=== PATIENT | female | born 1960 | race Caucasian/White ===

== ENCOUNTER 2016-10-31 08:44 | Inpatient (IN) ==
--- NOTE | 2016-10-31 09:43 | PROVIDER DOCUMENTATION ---
HPI-Abdominal Pain/GI Problem - General Chief Complaint: Abdominal Pain Stated Complaint: UPPER ABDOMINAL PAIN/LEG PAIN Time Seen by Provider: 10/31/16 09:24 Source: patient Allergies/Adverse Reactions: Patient Allergies Allergy/AdvReac Type Severity Reaction Status Date / Time chocolate flavor Allergy VOMITING Verified 10/31/16 09:12 meperidine HCl * Allergy Unknown Verified 10/31/16 09:12 [From Demerol] venlafaxine HCl * Allergy Unknown Verified 10/31/16 09:12 [From Effexor] Home Medications: Home Medication List Medication Instructions Recorded Confirmed Last Taken Type Aripiprazole [Abilify] 10 mg PO DAILY 07/06/16 10/31/16 10/31/16 08:00 History Cholecalciferol (Vitamin D3) 5,000 unit PO DAILY 07/06/16 10/31/16 07/05/16 History [Vitamin D3] Citalopram [Celexa] 40 mg PO DAILY 07/06/16 10/31/16 10/31/16 06:00 History Clonazepam [Klonopin] 1 mg PO HS 07/06/16 10/31/16 10/31/16 06:00 History Cyanocobalamin (Vitamin B-12) 5,000 mcg PO DAILY 07/06/16 10/31/16 10/30/16 09: 00 History [Vitamin B12] Gabapentin 300 mg PO TID 07/06/16 10/31/16 10/31/16 06:00 History Mirtazapine [Remeron] 45 mg PO QHS 07/06/16 10/31/16 07/05/16 History Tizanidine HCl [Zanaflex] 4 mg PO DAILY 07/06/16 10/31/16 10/31/16 08:00 History Vitamin E 400 unit PO DAILY 07/06/16 10/31/16 10/30/16 09:00 History Bisacodyl [Dulcolax] 10 mg ME QHS #20 supp 10/31/16 Unknown Rx Docusate Sodium [Colace] 100 mg PO BID PRN PRN #20 capsule 10/31/16 Unknown Rx Estrogens, Conjugated [Premarin] 0.3 mg PO DAILY 10/31/16 10/31/16 10/30/16 20: 00 History Polyethylene Glycol 3350 [Miralax] 17 gm PO DAILY #14 powd.pack 10/31/16 Unknown Rx - History of Present Illness-ABD Nature of Presenting Problems: 56 y/o WF presents to the ED with c/o back pain, abd. pain, L hip pain x 1 year. Pt states that she has a hx of spinal stenosis and fibromyalgia; seen by neurology, but has not been given tx plan. States abd. pain is epigastric and R flank. Reports back pain from mid-back to lumbar spine. Denies any bowel/ bladder dysfunction. States has not been able to walk for 1 year. Denies any other sxs, including fever/chills, N/V/D/C. Pt appears to be intoxicated, but denies any pain medication use or alcohol. Review of Systems - Adult - REVIEW OF SYSTEMS - ADULT Constitutional: reports: no symptoms reported. denies: chills, fever Eyes: reports: no symptoms reported. denies: blurred vision, double vision Ears, Nose, Mouth & Throat: reports: no symptoms reported. denies: ear pain, nose pain Cardiovascular: reports: no symptoms reported. denies: chest pain, palpitations Respiratory: reports: no symptoms reported. denies: cough, shortness of breath Gastrointestinal: reports: see HPI, abdominal pain. denies: constipation, diarrhea, nausea, vomiting Genitourinary: reports: dysuria. denies: frequency, flank pain Musculoskeletal: reports: see HPI, back pain. denies: joint pain, joint swelling Integumentary: reports: no symptoms reported. denies: nail changes, rash Neurological: reports: no symptoms reported. denies: numbness, paresthesia Psychiatric: reports: no symptoms reported Endocrine: reports: no symptoms reported. denies: cold intolerance, heat intolerance Hematologic/Lymphatic: reports: no symptoms reported. denies: easy bruising, prolonged bleeding Allergic/Immunologic: reports: no symptoms reported All Other Systems: Reviewed and Negative Past History - Adult - PAST MEDICAL HISTORY-ADULT Review of Records: reports: Nursing Assessment Review, Medications Reviewed Musculoskeletal: reports: fibromyalgia, other (spinal stenosis) Endocrine/Immune: reports: anemia - SOCIAL HISTORY Smoking: quit less than 1 year Alcohol Use Frequency: rarely Physical Exam-General - PHYSICAL EXAM-ADULT Initial Vital Signs Reviewed: Yes - CONSTITUTIONAL General Appearance: alert, slow to respond - EYES Eyes: PERRL/EOMI, pink conjunctivae - HEAD, EARS, NOSE, MOUTH & THROAT HENMT: normocephalic/atraumatic, moist mucous membranes - NECK Neck: normal inspection - RESPIRATORY Respiratory: lungs clear, normal breath sounds. negative: crackles, rales, rhonchi, stridor, wheezing - CARDIOVASCULAR Cardiovascular: regular rate, rhythm. negative: bradycardia, tachycardia - GASTROINTESTINAL (ABDOMEN) Abdominal Exam: normal bowel sounds, soft, tenderness (mild, generalized). negative: distended, guarding, rigid, rebound, McBurney's point tenderness, Zaidi's sign - MUSCULOSKELETAL Back Exam: normal inspection, decreased range of motion, vertebral tenderness ( t and L spine) Extremity: negative: abnormal NV exam - SKIN Integumentary: normal color, normal turgor - NEUROLOGIC Neurologic: negative: aphasia - PSYCHIATRIC Psych/Mental Status: normal thought content, normal thought process Progress - PLAN OF CARE/RESULTS Progress/Plan/Lab Results: Vital Signs - 8 hr 10/31/16 08:53 Temperature 97.6 F Pulse Rate 72 Respiratory Rate 15 Blood Pressure 146/88 O2 Sat by Pulse Oximetry 96 Orders Category Date Time Status CBC WITH DIFF [HEME] Stat Lab 10/31/16 09:18 Ordered CMP [COMPREHENSIVE METABOLIC PANEL] [CHEM] Stat Lab 10/31/16 09:18 Ordered Discussed pt with Dr. Riggs, and he agreed with consult to delinquency prevention social worker and/or hospitalist to at least set up home health care. Result Diagrams: 10/31/16 09:08 10/31/16 09:08 - CT/MRI 1 CT Study: Abdomen, Pelvis Impression: See EMR Report (1. Constipation with fecal impaction. 2. Hysterectomy. 3. Small renal cysts. -per Dr. Alfaro) - CONSULTS/PCP/HOSPITALIST Notification #1 *Consult/PCP/Hospitalist*: Ethel Chawla delinquency prevention social worker Time Discussed: 13:49 Reason/Comments: unable to walk at home x 1 year Consult Disposition: F/U in office (with PCP) #2 Consult: Dr. Hernandez Time Discussed: 13:57 Reason/Comments: fecal impaction, inability to walk x 1 year Consult Disposition: Will see in ED, Admit (Admit for further evaluation, disimpaction, and possible rehab facility or NH placement.) Departure - Departure Time of Disposition Decision: 12:31 DIAGNOSIS: Fecal impaction Constipation Qualifiers: Constipation type: unspecified constipation type Qualified Code(s): K59.00 - Constipation, unspecified Disposition: ADMITTED INPATIENT 09 Certified Medical Emergency: Emergent Condition: Stable Additional Freetext Instructions: Follow up with PCP for further management. Take medications as directed. Drink plenty of fluids. ED Follow Up Instructions: You have been treated by a care provider in the Emergency Department. These instructions are being provided to you so you can have an understanding of how to care for yourself upon discharge. Upon discharge from the Emergency Department, you are responsible for making arrangements for follow-up care by a physician of your choice. Take all prescribed medications as directed. Return to the Emergency Department immediately for any new or worsening symptoms. You may call the Physician Referral phone number at [phone] to obtain a list of Physicians who are taking new patients. Prescriptions: Docusate Sodium [Colace] 100 mg PO BID PRN PRN #20 capsule PRN Reason: Constipation Bisacodyl [Dulcolax] 10 mg ME QHS #20 supp Polyethylene Glycol 3350 [Miralax] 17 gm PO DAILY #14 powd.pack Referrals and Follow-Ups: Gia Dyer MD [Primary Care Provider] - Work Excuses: Return to School/Parent Work Discharge Education: Constipation, Adult, Fecal Impaction - Critical Care Note This patient required my direct & personal management of CC.: No Attestation - Physician/ AURY Attestation Patient care was provided by Advanced Practice Provider:: Yes Advanced Practice Provider:: Jackie Lanier Advanced Practice Provider documentation review:: The Mid-level provider documentation, treatment plan and medical decision making was reviewed by the physician who agrees with all treatment and medical decision making by the MLP.
[2016-10-31 09:52] LABS: MANUAL DIFF NEEDED? NO
[2016-10-31 10:05] LABS: BASO% 0.3 % (0.0-0.8); EOS# 0.15 X1000 (0.0-0.7); EOS% 2.5 % (0.0-10.0); HEMATOCRIT 36.9 % (37.0-47.0); HEMOGLOBIN 12.2 g/dL (12.0-16.0); IMM GRAN# 0.02 X1000 (0.0-0.04); IMM GRAN% 0.3 % (0.0-0.5); LYMPH# 1.66 X1000 (1.2-3.4); LYMPH% 27.5 % (20.5-51.1); MCH 29.4 PG (27-31); MCHC 33.1 g/dL (33-37); MCV 88.9 FL (81-99); MONO# 0.57 X1000 (0.11-0.59); MONO% 9.5 % (1.7-9.3); MPV 9.6 FL (7.4-10.4); NEUT% 59.9 % (42.2-75.2); PLT 283 X1000 (130-400); RBC 4.15 XMIL (4.2-5.4)
[2016-10-31 10:29] LABS: URINE MICRO REVIEW NEEDED? NO; URINE SOURCE CLEAN CATCH
[2016-10-31 10:37] LABS: BILIRUBIN URINE NEGATIVE (NEGATIVE); BLOOD URINE NEGATIVE (NEGATIVE); COLOR YELLOW; GLUCOSE URINE NEGATIVE (NEGATIVE); LEUKOCYTES URINE TRACE (NEGATIVE); NITRITE URINE NEGATIVE (NEGATIVE); PROTEIN URINE NEGATIVE (NEGATIVE); TURBIDITY URINE HAZY (CLEAR); UROBILINOGEN URINE NORMAL (NORMAL)
[2016-10-31 10:39] LABS: UR EPITHELIAL CELLS >10 /HPF (<10); URINE BACTERIA 2+ /HPF; URINE CULTURE NEEDED? YES; URINE RBC TNTC /HPF (<10); URINE WBC <10 /HPF (<10)
[2016-10-31 10:39] LABS: AGAP 10; ALBUMIN 3.7 g/dL (3.5-5.0); ALKALINE PHOSPHATASE 93 U/L (32-104); BUN 10 mg/dL (8-22); CALCIUM 8.9 mg/dL (8.8-10.2); CHLORIDE 105 mmol/L (98-107); COSMO 283; GOT 11 U/L (10-30); GPT 8 U/L (10-36); POTASSIUM 3.6 mmol/L (3.5-5.1); SODIUM 143 mmol/L (136-145); TCO2 28 mmol/L (25-35); TOTAL BILIRUBIN 0.12 mg/dL (0.20-1.00); TOTAL PROTEIN 7.3 g/dL (6.3-8.3)
[2016-10-31 10:58] LABS: UR AMPHETAMINES MT NONE DETECTED (NONE DETECT); UR BARBITUATES MT NONE DETECTED (NONE DETECT); UR BENZODIAZ MT NONE DETECTED (NONE DETECT); UR CANNABIS MEDTOX NONE DETECTED (NONE DETECT); UR COCAINE MT NONE DETECTED (NONE DETECT); UR METHADONE MEDTOX NONE DETECTED (NONE DETECT); UR OPIATES MT NONE DETECTED (NONE DETECT); UR OXYCODONE MEDTOX NONE DETECTED (NONE DETECT); UR PCP MEDTOX NONE DETECTED (NONE DETECT)
--- NOTE | 2016-10-31 12:12 | Diag Imaging Result Doc PS360 ---
EXAM: CT ABD/PELVIS W/ IV CONT ONLY HISTORY: abd. Pain radiating to back TECHNIQUE: Dose reduction protocol COMPARISON: None. FINDINGS: No focal hepatic abnormality. The gallbladder is contracted. Normal spleen, pancreas, and adrenal glands. Normal enhancement of the kidneys. There are several small renal cysts. No hydronephrosis. Normal aorta. There is stool throughout the colon. Prominent stool in the sigmoid colon and rectum. Rectal stool has a diameter of 5.6 cm. No inflammation about the cecum. No abscess. No free air. The urinary bladder is distended and appears normal. Uterus is been removed. No pelvic mass. IMPRESSION: 1.Constipation with fecal impaction 2.Hysterectomy 3.Small renal cysts in Electronically signed by David Alfaro 10/31/2016 12:09 PM
[2016-10-31] MEDS ORDERED: CITRATE OF MAGNESIA PO ONE (12:30)
[2016-10-31] MEDS ORDERED: TORADOL IV ONE (12:32)
[2016-10-31] MEDS ORDERED: NS 1,000 ML IV ONE (12:32)
--- NOTE | 2016-10-31 15:16 | HISTORY AND PHYSICAL ---
HISTORY OF PRESENT ILLNESS: This is a 56-year-old who presented to the emergency room. She is actually Dr. Dyer's patient. She states that for the last year and a half, she has had a lot of back pain, decreased ability to walk and lately has gotten where she has to have assistance even to get up and walk a couple of feet. They are trying to get her into assisted living. She is restarted on her rehab and apparently has been to [facility] and had seen orthopedics specialist. The best I can ascertain she has lumbar sacral stenosis and there is no surgical option that has been offered. She has an MRI of her cervical and lumbar spine and there was a small central disk bulge, but no spinal stenosis noted at that time. No disk herniation. No spinal stenosis. So MRI and cervical spine have not revealed anything. Cervical spine, there are posterior bone spurs, small bulging disks at C5-6, C6-7 resulting in mild spinal stenosis with neural foraminal narrowing. Apparently things have progressed. She came in with abdominal pain today and a CT was done of her abdomen and pelvis. She has constipation with fecal impaction, status post hysterectomy, small renal cyst. OTHER PAST MEDICAL HISTORY: Apparently she has had numerous laparoscopic surgeries in the past for endometriosis. She had thyroid surgery, thyroidectomy. She has had osteoarthritis. She has fibromyalgia. She does not have any diabetes. She has Raynaud's syndrome. I think she has been treated for depression in the past. She has battled constipation for a while. ALLERGIES: Chocolate flavor. Demerol. Venlafaxine. REVIEW OF SYSTEMS: General: No weight gain or loss that she notes. HEENT: Unremarkable. Respiratory: No increased work of breathing or dyspnea. Cardiovascular: No chest pain or tachy palpitation. GI/: No gross hematuria or dysuria, but constipation has been an issue. Endocrinologic, hematologic: She has had thyroid surgery in the past. At present time I do not see where she is on the thyroid supplement. I think we ought to check her T4 and TSH. FAMILY HISTORY: Noncontributory. SOCIAL HISTORY: She denies alcohol or illicit drugs. PHYSICAL EXAMINATION: VITAL SIGNS: Afebrile, temperature 97.6 degrees, pulse 80, respirations 20, blood pressure 180/89. O2 saturation 97%. EYES: Pupils are equal and round. LUNGS: Clear in all lung peter. CARDIOVASCULAR: Regular rhythm and rate without murmur or S3. ABDOMEN: Soft. SKIN: Warm and dry. HEIGHT AND WEIGHT: Weight 150 pounds, height 5 feet 3 inches. LABORATORY: White blood cell count 6030, hematocrit 36, platelet count 283,000. Sodium 143, potassium 3.6, chloride 105, BUN 10, creatinine 0.7. Liver functions unremarkable. Urinalysis and urine drug screen was negative. Urinalysis: Bse-tdnxinyt-la-count red blood cells. 2+ bacteria. IMAGING: Abdominal and pelvic CT: 1) Constipation with fecal impaction. 2) Hysterectomy. 3) Small renal cyst. MEDICATIONS: She is on Abilify 10 mg a day. Dulcolax 10 mg p.o. at bedtime. Vitamin D3 5000 units a day. Celexa 40 mg a day. Klonopin 1 mg at bedtime. Cyanocobalamin. Vitamin B12 5000 mcg p.o. daily. Docusate sodium or Colace 100 mg b.i.d. Estrogen conjugated 0.3 mg daily. Gabapentin 300 mg t.i.d. Remeron 45 mg at bedtime. MiraLAX 17 g daily. Zanaflex 4 mg daily. Vitamin E 400 units p.o. daily. ASSESSMENT AND PLAN: 1. Constipation. Pretty extensive. We are going to need to try and give her some cathartic from above and try some enemas and see if we can get her some relief. 2. Neuropathy in her arms and legs. Apparently she has had workup done. Even at [facility] they have not found any significant pathology to explain this. Her magnetic resonance imaging of her thoracic spine or lumbar spine and cervical spine in September of last year was pretty unremarkable. Brain magnetic resonance imaging done in September 2015 grossly normal, but for some reason she is unable to walk very far. I am going to ask Neurology to evaluate from this standpoint and ask physical therapy to evaluate. She is going to need to try and go to rehab and see if we can improve her strength and coordination. 3. History of fibromyalgia. 4. History of thyroid surgery. We will check her T4 and thyroid stimulating hormones and will check a B12 and folate again. I will check a sedimentation rate, and C-reactive protein. Admit to Ilya Dyer MD. cc: MD Jamaal Moralez MD
--- NOTE | 2016-10-31 16:21 | Diag Imaging Result Doc PS360 ---
EXAM: CHEST-2 VIEWS HISTORY: weakness TECHNIQUE: COMPARISON: None. FINDINGS: The lungs are well expanded. The left hemidiaphragm is elevated. The heart is not enlarged. The vessels are not distended. There are no infiltrates. No pleural effusions. IMPRESSION: No acute abnormality. Electronically signed by David Alfaro 10/31/2016 4:19 PM
[2016-10-31] MEDS: NS + KCL 20 MEQ 1,000 ML IV SCH (17:19)
[2016-10-31] MEDS: NEURONTIN PO SCH (17:19)
[2016-10-31] MEDS: KLONOPIN PO SCH (20:27)
[2016-10-31] MEDS: REMERON PO SCH (20:27)
[2016-10-31] MEDS: LACTULOSE PO SCH (20:27)
[2016-10-31] MEDS: ZANAFLEX PO SCH (20:48)
[2016-11-01 06:29] LABS: MANUAL DIFF NEEDED? NO
[2016-11-01 06:31] LABS: BASO% 0.4 % (0.0-0.8); EOS# 0.13 X1000 (0.0-0.7); EOS% 2.7 % (0.0-10.0); HEMATOCRIT 36.9 % (37.0-47.0); HEMOGLOBIN 12.1 g/dL (12.0-16.0); LYMPH# 2.21 X1000 (1.2-3.4); LYMPH% 46.6 % (20.5-51.1); MCH 29.2 PG (27-31); MCHC 32.8 g/dL (33-37); MCV 89.1 FL (81-99); MONO# 0.45 X1000 (0.11-0.59); MONO% 9.5 % (1.7-9.3); MPV 9.3 FL (7.4-10.4); NEUT% 40.8 % (42.2-75.2); PLT 280 X1000 (130-400); RBC 4.14 XMIL (4.2-5.4)
[2016-11-01 06:46] LABS: AGAP 9; ALBUMIN 3.3 g/dL (3.5-5.0); ALKALINE PHOSPHATASE 87 U/L (32-104); BUN 9 mg/dL (8-22); CALCIUM 8.5 mg/dL (8.8-10.2); CHLORIDE 110 mmol/L (98-107); COSMO 286; GOT 11 U/L (10-30); GPT 8 U/L (10-36); POTASSIUM 3.9 mmol/L (3.5-5.1); SODIUM 145 mmol/L (136-145); TCO2 26 mmol/L (25-35); TOTAL BILIRUBIN 0.21 mg/dL (0.20-1.00); TOTAL PROTEIN 6.7 g/dL (6.3-8.3)
[2016-11-01] MEDS: VITAMIN B-12 SL SCH (09:59)
[2016-11-01] MEDS: ABILIFY PO SCH (09:59)
[2016-11-01] MEDS: NS + KCL 20 MEQ 1,000 ML IV SCH ×2 (09:59→19:15)
[2016-11-01] MEDS: VITAMIN D PO SCH (10:00)
[2016-11-01] MEDS: ZANAFLEX PO SCH (10:00)
[2016-11-01] MEDS: NEURONTIN PO SCH ×3 (10:00→20:33)
[2016-11-01] MEDS: PREMARIN PO SCH (10:00)
[2016-11-01] MEDS: CELEXA PO SCH (10:00)
[2016-11-01] MEDS: VITAMIN E PO SCH (10:00)
[2016-11-01] MEDS: LACTULOSE PO SCH ×2 (10:00→20:33)
--- NOTE | 2016-11-01 11:49 | PROGRESS NOTE ---
DATE: 11/01/2016 SUBJECTIVE: The patient still complains of some diffuse abdominal discomfort and bloating, but she says she had a good bowel movement and that seemed to help some. She continues to seem slow in regards to her thought processes and movements. OBJECTIVE: Vital Signs: Afebrile, pulse 70, respirations 21, blood pressure 167/79, and O2 saturation on room air 98% and 100%. Cardiovascular: RRR without murmur. Lungs: CTA. Abdomen: Soft, active bowel sounds. Mild protuberance. No pinpoint tenderness. No rebound or guarding. Extremities: No calf tenderness, cords, or edema. Neurologic: Cranial nerves are intact. Nonfocal. LABORATORY DATA: Labs reviewed show white count of 4.7, hemoglobin 12.1, hematocrit 37, and platelets 280,000. CMP unremarkable. Lipase 31. Urine drug screen negative. Plasma alcohol level negative. ASSESSMENT: 1. Constipation. 2. Chronic back pain. 3. Slow neurological movements. 4. Fibromyalgia. 5. Depression. 6. History of thyroid surgery. PLAN: We will check TFTs, B12, folate, sedimentation rate, and CRP in the morning. Continue lactulose as order by Dr. Hernandez. She has seen a response with enema x1. Continue her Neurontin for possible neuropathy and fibromyalgia. Continue antidepressants. Continue IVF. cc: MD Jamaal Saunders MD
[2016-11-01] MEDS ORDERED: CALMOSEPTINE OINTMENT TOP PRN (12:14)
[2016-11-01] MEDS: REMERON PO SCH (20:33)
[2016-11-01] MEDS: KLONOPIN PO SCH (20:33)
[2016-11-02 07:21] LABS: FREE T4 0.99 ng/dL (0.93-1.70)
--- NOTE | 2016-11-02 09:11 | PROGRESS NOTE ---
DATE: 11/02/2016 SUBJECTIVE: Interval history was reviewed and discussed with Dr. Ervin. She was admitted to the hospital with intractable pain, constipation. Not able to do any activities of daily living. Patient had worked up in the past at [facility]. Etiology was not clear. The patient needs some aggressive inpatient physical therapy for assistance. The patient is also due for a TB skin test. PAST MEDICAL HISTORY: Medicines were reviewed. OBJECTIVE: Vital Signs: On examination, vitals are stable. HEENT exam: Within normal limits. Neck: Supple. Chest: Clear. Heart: Sounds are regular. Abdomen: Belly is soft, nontender. Good bowel sounds. No masses palpable. INVESTIGATIONS: CBC: White cell count 4.7, hematocrit 36, platelets 280. SMA 7 is normal. Sedimentation rate is 34. CRP is normal. B 12 is normal. Folate is slightly low. Thyroid is normal. Urinalysis is negative. Urine tox screen is negative. ASSESSMENT AND PLAN: 1. Deconditioning, fibromyalgia, not able to do anything. Continue on gabapentin, Celexa and Abilify. 2. Constipation is resolving. 3. Folic acid deficiency. Intravenous folic acid. 4. Decreasing activities of daily living. Needs physical therapy. Mechanical Design Engineer consult. 5. History of bipolar disorder on Abilify. Basically, physical therapy, PPD skin test, continue lactulose. LEVEL OF DOCUMENTATION: 25 minutes. cc: Jamaal Dyer MD
[2016-11-02] MEDS: NS + KCL 20 MEQ 1,000 ML IV SCH ×2 (09:35→20:54)
[2016-11-02] MEDS: VITAMIN B-12 SL SCH (09:36)
[2016-11-02] MEDS: LACTULOSE PO SCH ×2 (09:36→20:48)
[2016-11-02] MEDS: PREMARIN PO SCH (09:36)
[2016-11-02] MEDS: CELEXA PO SCH (09:36)
[2016-11-02] MEDS: VITAMIN D PO SCH (09:36)
[2016-11-02] MEDS: NEURONTIN PO SCH ×3 (09:36→18:55)
[2016-11-02] MEDS: VITAMIN E PO SCH (09:36)
[2016-11-02] MEDS: ABILIFY PO SCH (09:36)
[2016-11-02] MEDS: ZANAFLEX PO SCH (09:36)
[2016-11-02] MEDS: FOLIC ACID 5 MG in NS 50 ML IV SCH (10:25)
[2016-11-02] MEDS: TYLENOL PO PRN (18:55)
[2016-11-02] MEDS: REMERON PO SCH (20:48)
[2016-11-02] MEDS: KLONOPIN PO SCH (20:48)
[2016-11-03] MEDS: TYLENOL PO PRN (04:26)
[2016-11-03] MEDS: NS + KCL 20 MEQ 1,000 ML IV SCH ×2 (04:26→10:37)
[2016-11-03] MEDS ORDERED: TUBERSOL ID ONE (08:04)
[2016-11-03] MEDS: ULTRACET 37.5MG/325MG PO PRN ×2 (08:25→16:24)
[2016-11-03] MEDS: NEURONTIN PO SCH ×3 (08:26→16:28)
[2016-11-03] MEDS: ABILIFY PO SCH (08:26)
[2016-11-03] MEDS: CELEXA PO SCH (08:26)
[2016-11-03] MEDS: ZANAFLEX PO SCH (08:26)
[2016-11-03] MEDS: VITAMIN B-12 SL SCH (08:26)
[2016-11-03] MEDS: VITAMIN D PO SCH (08:26)
[2016-11-03] MEDS: LACTULOSE PO SCH ×2 (08:27→20:50)
[2016-11-03] MEDS: FOLIC ACID 5 MG in NS 50 ML IV SCH (08:27)
[2016-11-03] MEDS: PREMARIN PO SCH (08:27)
[2016-11-03] MEDS: VITAMIN E PO SCH (08:27)
--- NOTE | 2016-11-03 08:28 | PROGRESS NOTE ---
DATE: 11/03/2016 SUBJECTIVE: The patient complains of back pain. PPD still yet to be placed. Not able to walk. REVIEW OF SYSTEMS: None reported. PHYSICAL EXAMINATION: Vitals are stable, afebrile, blood pressure is stable. HEENT: Within normal limits. Neck: Supple. Chest: Clear. Heart: Heart sounds are regular. Belly is soft, nontender. Good bowel sounds. No masses palpable. Neurologic: No focal deficits. LABORATORY DATA: Sedimentation rate was 34. CRP 4. Folate is slightly low. IMAGING: CT scan of the abdomen and pelvis: Basically constipation, nothing acute. ASSESSMENT AND PLAN: Fibromyalgia, deconditioning. Will start with Ultracet. History of constipation is better. Folic acid deficiency, on intravenous folic acid. Will place purified protein derivative skin test, and increase the physical activity. Will wait for placement at [facility]. Decrease her intravenous fluids to 50 mL an hour as a plan of care. LEVEL OF DOCUMENTATION: 15 minutes. cc: Jamaal Dyer MD
[2016-11-03] MEDS: KLONOPIN PO SCH (20:50)
[2016-11-03] MEDS: REMERON PO SCH (20:50)
[2016-11-04] MEDS: ULTRACET 37.5MG/325MG PO PRN ×3 (00:27→16:51)
[2016-11-04] MEDS: NS + KCL 20 MEQ 1,000 ML IV SCH ×2 (00:38→06:41)
[2016-11-04] MEDS: ZOFRAN IV PRN ×2 (07:55→16:15)
[2016-11-04] MEDS: VITAMIN E PO SCH (08:54)
[2016-11-04] MEDS: VITAMIN D PO SCH (08:54)
[2016-11-04] MEDS: VITAMIN B-12 SL SCH (08:54)
[2016-11-04] MEDS: ABILIFY PO SCH (08:54)
[2016-11-04] MEDS: ZANAFLEX PO SCH (08:54)
[2016-11-04] MEDS: NEURONTIN PO SCH ×3 (08:55→16:15)
[2016-11-04] MEDS: CELEXA PO SCH (08:55)
[2016-11-04] MEDS: FOLIC ACID 5 MG in NS 50 ML IV SCH (08:55)
[2016-11-04] MEDS: PREMARIN PO SCH (09:00)
[2016-11-04] MEDS: LACTULOSE PO SCH ×2 (09:00→21:22)
--- NOTE | 2016-11-04 09:10 | PROGRESS NOTE ---
DATE: 11/04/2016 SUBJECTIVE: The patient complains of nausea and history of constipation, decreased IV fluids. PPD was placed. [facility]. REVIEW OF SYSTEMS: Pain in the back. PHYSICAL EXAMINATION: Vital Signs: Stable. Blood pressure is slightly high. HEENT: Exam is within normal limits. Neck: Supple. No lymphadenopathy. No goiter. Chest: Clear. Heart: Sounds are regular. Abdomen: Belly is soft, protuberant. Bowel sounds 1+. Neurologic: No neurological deficits. LABS: Urine cultures were negative. ASSESSMENT AND PLAN: 1. Nausea, new finding, not advanced the diet today. Check the KUB for constipation. Continue symptomatic treatment with Zofran, and based on the KUB further recommendations will be followed. Purified protein derivative was placed. 2. Hopefully we will get a bed for tomorrow at [facility] for physical therapy, chronic pain and fibromyalgia. LEVEL OF DOCUMENTATION: 25 minutes. cc: Jamaal Dyer MD
[2016-11-04] MEDS ORDERED: SODIUM CHLORIDE 0.9% INJ ONE (10:28)
[2016-11-04] MEDS ORDERED: PHENERGAN IV ONE (10:28)
--- NOTE | 2016-11-04 10:51 | Diag Imaging Result Doc PS360 ---
EXAM: KUB ABDOMEN HISTORY: constipation TECHNIQUE: One view COMMENT: There is fecal impaction in the rectum. There is some stool seen elsewhere in the colon. The stomach and small bowel are not distended. There is no evidence organomegaly or mass. There is curvature of the thoracolumbar spine with convexity to the right. IMPRESSION: Fecal impaction. Electronically signed by David Luis 11/04/2016 10:48 AM
[2016-11-04] MEDS: REMERON PO SCH (21:22)
[2016-11-04] MEDS: KLONOPIN PO SCH (21:22)
[2016-11-05] MEDS: NS + KCL 20 MEQ 1,000 ML IV SCH ×2 (01:47→19:20)
[2016-11-05] MEDS: FOLIC ACID 5 MG in NS 50 ML IV SCH (08:58)
[2016-11-05] MEDS: VITAMIN B-12 SL SCH (08:58)
[2016-11-05] MEDS: ABILIFY PO SCH (08:58)
[2016-11-05] MEDS: VITAMIN E PO SCH (08:59)
[2016-11-05] MEDS: ZANAFLEX PO SCH (08:59)
[2016-11-05] MEDS: CELEXA PO SCH (08:59)
[2016-11-05] MEDS: LACTULOSE PO SCH ×2 (08:59→19:59)
[2016-11-05] MEDS: VITAMIN D PO SCH (08:59)
[2016-11-05] MEDS: PREMARIN PO SCH (08:59)
[2016-11-05] MEDS: NEURONTIN PO SCH ×3 (08:59→17:38)
--- NOTE | 2016-11-05 09:00 | PROGRESS NOTE ---
DATE: 11/05/2016 SUBJECT: Followup KUB showed significant constipation. Patient is still nauseous, not eating very well. She is completely bedridden. PPD was placed and complains of intermittent belly pain. Rest of review of systems were normal. PHYSICAL EXAMINATION: Vital signs are stable. HEENT exam within normal limits. Neck is supple. No lymphadenopathy. Chest is clear. Heart sounds are regular. Belly is soft, nontender. Hyperactive bowel sounds. No peripheral edema, cyanosis. No obvious neurological deficits. INVESTIGATION: KUB: Constipation. ASSESSMENT AND PLAN: 1. Abdominal pain and nausea due to constipation. We will start on Dulcolax, continue on lactulose and laxatives, IV fluids 50 mL/hour. 2. Fibromyalgia pain. Continue on Neurontin and Ultracet. 3. Deep venous thrombosis prophylaxis with Lovenox. 4. Aggressive physical therapy. Hopefully, she will get a bed for rehab on Tuesday. Level of documentation is 25 minutes. cc: Jamaal Dyer MD
[2016-11-05] MEDS: REMERON PO SCH (19:59)
[2016-11-05] MEDS: DULCOLAX PR SCH (19:59)
[2016-11-05] MEDS: KLONOPIN PO SCH (19:59)
[2016-11-06] MEDS: ABILIFY PO SCH (09:38)
[2016-11-06] MEDS: LACTULOSE PO SCH ×2 (09:39→20:33)
[2016-11-06] MEDS: CELEXA PO SCH (09:39)
[2016-11-06] MEDS: ZANAFLEX PO SCH (09:39)
[2016-11-06] MEDS: FOLIC ACID 5 MG in NS 50 ML IV SCH (09:39)
[2016-11-06] MEDS: LOVENOX SUBQ SCH (09:39)
[2016-11-06] MEDS: NEURONTIN PO SCH ×3 (09:39→18:02)
[2016-11-06] MEDS: VITAMIN D PO SCH (09:39)
[2016-11-06] MEDS: PREMARIN PO SCH (09:39)
[2016-11-06] MEDS: VITAMIN E PO SCH (09:39)
[2016-11-06] MEDS: VITAMIN B-12 SL SCH (09:45)
--- NOTE | 2016-11-06 13:15 | PROGRESS NOTE ---
DATE: 11/06/2016 SUBJECTIVE: I did discuss with health care social worker. The patient has to pay 1000 dollars deductible for rehab placement. She is also looking for assisted living care at [place]. She had a good bowel movement. Soft with Dulcolax. Decreased nausea. PPD test so far negative. She is still bedridden. OBJECTIVE: Vital Signs: Stable. HEENT: Within normal limits. Neck: Supple. No lymphadenopathy. No goiter. Chest: Clear. Heart: Sounds are regular. Abdomen: Belly is soft, nontender. Good bowel sounds. No masses palpable. Extremities: No peripheral edema, cyanosis or clubbing. INVESTIGATIONS: PPD was negative. ASSESSMENT AND PLAN: Abdominal pain due to constipation resolving after laxatives. DISPOSITION: Unable to get a [facility] placement. The patient wants to go for assisted living on Tuesday. PPD was negative. Continue laxatives and present medical therapy. LEVEL OF DOCUMENTATION: Fifteen minutes. cc: Jamaal Dyer MD
[2016-11-06] MEDS: NS + KCL 20 MEQ 1,000 ML IV SCH (18:03)
[2016-11-06] MEDS: KLONOPIN PO SCH (20:33)
[2016-11-06] MEDS: DULCOLAX PR SCH (20:33)
[2016-11-06] MEDS: TYLENOL PO PRN (20:33)
[2016-11-06] MEDS: REMERON PO SCH (20:33)
[2016-11-07] MEDS: TYLENOL PO PRN ×3 (02:47→20:32)
--- NOTE | 2016-11-07 08:05 | PROGRESS NOTE ---
DATE: 11/07/2016 SUBJECTIVE: Patient complains of right upper quadrant pain and nausea. She still has her gallbladder, wants to rule out gallbladder disease for nausea and abdominal pain. REVIEW OF SYSTEMS: Right upper quadrant pain started this morning. PHYSICAL EXAMINATION: Vital Signs: Vitals are stable. HEENT Examination: Within normal limits. Neck: Supple. No lymphadenopathy. Chest: Clear. Heart: Heart sounds are regular. Abdomen: Belly is soft. Tender in the right upper quadrant. No signs of peritonitis or Zaidi's sign. Rest of the exam is benign. ASSESSMENT AND PLAN: Right upper quadrant pain and nausea, rule out gallbladder disease. We will do the ultrasound of the abdomen. CT of the abdomen and pelvis on 10/31/2016, gallbladder was contracted, hysterectomy, constipation. Based on the ultrasound, further recommendations will be followed. Level of documentation is 25 minutes. cc: Jamaal Dyer MD
[2016-11-07] MEDS: VITAMIN E PO SCH (08:36)
[2016-11-07] MEDS: FOLIC ACID 5 MG in NS 50 ML IV SCH (08:36)
[2016-11-07] MEDS: VITAMIN D PO SCH (08:36)
[2016-11-07] MEDS: PREMARIN PO SCH (08:36)
[2016-11-07] MEDS: ABILIFY PO SCH (08:36)
[2016-11-07] MEDS: LOVENOX SUBQ SCH (08:36)
[2016-11-07] MEDS: ZANAFLEX PO SCH (08:36)
[2016-11-07] MEDS: LACTULOSE PO SCH ×2 (08:36→20:28)
[2016-11-07] MEDS: NEURONTIN PO SCH ×3 (08:36→18:07)
[2016-11-07] MEDS: VITAMIN B-12 SL SCH (08:36)
[2016-11-07] MEDS: CELEXA PO SCH (08:36)
[2016-11-07] MEDS: NS + KCL 20 MEQ 1,000 ML IV SCH (12:54)
--- NOTE | 2016-11-07 13:16 | Diag Imaging Result Doc PS360 ---
EXAM: US ABDOMEN-COMPLETE INDICATION: nausea COMPARISON: None. FINDINGS: The gallbladder appears normal with no stones, wall thickening, or pericholecystic fluid. The common bile duct is normal in diameter. Sonographic Zaidi's sign was reported to be negative. The liver is enlarged measuring up to 20 cm in length. No discrete hepatic mass is appreciated. Portal venous flow is hepatopedal. The visualized pancreas is unremarkable. The aorta and IVC are grossly unremarkable. The spleen is unremarkable. There are a couple simple appearing renal cysts bilaterally, both measuring up to 1.2 cm. The kidneys are grossly unremarkable, otherwise. IMPRESSION: 1.Hepatomegaly. 2.Essentially unremarkable abdominal ultrasound, otherwise. Electronically signed by Gamal Helm 11/07/2016 1:13 PM
[2016-11-07] MEDS: REMERON PO SCH (20:28)
[2016-11-07] MEDS: DULCOLAX PR SCH (20:28)
[2016-11-07] MEDS: KLONOPIN PO SCH (20:28)
[2016-11-08] MEDS: ZOFRAN IV PRN (03:42)
[2016-11-08] MEDS: NS + KCL 20 MEQ 1,000 ML IV SCH ×2 (08:36→13:25)
[2016-11-08] MEDS: VITAMIN E PO SCH (08:37)
[2016-11-08] MEDS: VITAMIN B-12 SL SCH (08:37)
[2016-11-08] MEDS: VITAMIN D PO SCH (08:37)
[2016-11-08] MEDS: PREMARIN PO SCH (08:37)
[2016-11-08] MEDS: NEURONTIN PO SCH ×3 (08:37→16:12)
[2016-11-08] MEDS: CELEXA PO SCH (08:37)
[2016-11-08] MEDS: ZANAFLEX PO SCH (08:37)
[2016-11-08] MEDS: ABILIFY PO SCH (08:37)
[2016-11-08] MEDS: FOLIC ACID 5 MG in NS 50 ML IV SCH (08:38)
[2016-11-08] MEDS: LACTULOSE PO SCH ×2 (08:38→20:03)
[2016-11-08] MEDS: LOVENOX SUBQ SCH (08:38)
--- NOTE | 2016-11-08 09:00 | PROGRESS NOTE ---
DATE: 11/08/2016 SUBJECTIVE: Complains of nausea and right upper quadrant pain. Ultrasound was negative. Patient had a good bowel movement. PHYSICAL EXAMINATION: Vital Signs: Stable. HEENT: Examination within normal limits. Neck: Supple. No lymphadenopathy. Chest: Clear. Heart: Heart sounds are regular. Abdomen: Belly is soft, nontender. Good bowel sounds. No masses palpable. No signs of peritonitis. ASSESSMENT AND PLAN: 1. Persistent nausea, vomiting, and right upper quadrant pain despite constipation improved and the ultrasound is negative. Rule out acalculous cholecystitis. We will check a HIDA scan. 2. PPD was negative based on HIDA scan. Further recommendations will be followed. Continue present medical therapy. cc: Jamaal Dyer MD
[2016-11-08] MEDS: DULCOLAX PR SCH (20:03)
[2016-11-08] MEDS: REMERON PO SCH (21:50)
[2016-11-08] MEDS: KLONOPIN PO SCH (21:50)
--- NOTE | 2016-11-09 08:59 | PROGRESS NOTE ---
DATE: 11/09/2016 SUBJECTIVE: Patient complains of persistent nausea, right upper quadrant pain. Ultrasound was negative. HIDA scan has been scheduled. REVIEW OF SYSTEMS: None reported. OBJECTIVE: Vitals: Are stable. HEENT: Exam within normal limits. Neck: Supple. No lymphadenopathy. Chest: Clear. Heart: Sounds are regular. Abdomen: Belly is soft, nontender. Good bowel sounds. No masses palpable. Extremities: No peripheral edema. Neurologic: No obvious neurological deficits. ASSESSMENT AND PLAN: 1. Abdominal pain with nausea. Ultrasound is negative. Follow up on HIDA scan. 2. PPD was negative. 3. Constipation resolving. 4. Chronic pain, fibromyalgia. Continue present medical therapy. 5. Based on the HIDA scan, further recommendations will be followed. LEVEL OF DOCUMENTATION: 15 minutes. cc: Jamaal Dyer MD
[2016-11-09] MEDS: NEURONTIN PO SCH ×4 (10:30→18:22)
[2016-11-09] MEDS: VITAMIN B-12 SL SCH (10:30)
[2016-11-09] MEDS: PREMARIN PO SCH (10:31)
[2016-11-09] MEDS: ABILIFY PO SCH (10:31)
[2016-11-09] MEDS: VITAMIN E PO SCH (10:31)
[2016-11-09] MEDS: ZANAFLEX PO SCH (10:31)
[2016-11-09] MEDS: CELEXA PO SCH (10:31)
[2016-11-09] MEDS: LACTULOSE PO SCH ×3 (10:32→22:09)
[2016-11-09] MEDS: VITAMIN D PO SCH (10:32)
[2016-11-09] MEDS: LOVENOX SUBQ SCH (10:33)
[2016-11-09] MEDS: FOLIC ACID 5 MG in NS 50 ML IV SCH (10:34)
[2016-11-09] MEDS: TYLENOL PO PRN (10:53)
[2016-11-09] MEDS: NS + KCL 20 MEQ 1,000 ML IV SCH (11:36)
--- NOTE | 2016-11-09 11:57 | Diag Imaging Result Doc PS360 ---
EXAM: HIDA SCAN W/ EJECTION FRACTION - 11/08/2016 HISTORY: N/V TECHNIQUE: Exam performed using 5.5 mCi technetium 99m Choletec ministration intravenously COMPARISON: None. FINDINGS: There is prompt tracer uptake and excretion by the liver with prompt appearance of tracer into small bowel. The gallbladder is promptly visualized, with gallbladder activity first visible less than 10 minutes following tracer administration. The gallbladder ejection fraction is calculated following administration of by mouth liquid ensure. The ejection fraction is calculated at 50%. IMPRESSION: Prompt visualization of gallbladder. Normal gallbladder ejection fraction at 50%. Electronically signed by Tavares Lemus 11/09/2016 11:55 AM
[2016-11-09] MEDS: DULCOLAX PR SCH (22:09)
[2016-11-09] MEDS: KLONOPIN PO SCH (22:09)
[2016-11-09] MEDS: REMERON PO SCH (22:09)
[2016-11-10 07:30] VITALS: BP 133/75
[2016-11-10] MEDS: VITAMIN D PO SCH (08:00)
[2016-11-10] MEDS: PREMARIN PO SCH (08:00)
[2016-11-10] MEDS: NEURONTIN PO SCH ×2 (08:00→14:07)
[2016-11-10] MEDS: ZANAFLEX PO SCH (08:00)
[2016-11-10] MEDS: CELEXA PO SCH (08:00)
[2016-11-10] MEDS: FOLIC ACID 5 MG in NS 50 ML IV SCH (08:00)
[2016-11-10] MEDS: VITAMIN B-12 SL SCH (08:00)
[2016-11-10] MEDS: LACTULOSE PO SCH (08:00)
[2016-11-10] MEDS: ABILIFY PO SCH (08:00)
[2016-11-10] MEDS: VITAMIN E PO SCH (08:01)
[2016-11-10] MEDS: LOVENOX SUBQ SCH (08:01)
[2016-11-10] MEDS: NS + KCL 20 MEQ 1,000 ML IV SCH ×2 (08:03→08:04)
--- NOTE | 2016-11-10 08:32 | DISCHARGE SUMMARY ---
ADMISSION DATE: 10/31/2016 DISCHARGE DATE: 11/10/2016 DISCHARGING DIAGNOSIS: Abdominal pain, nausea, and vomiting due to constipation. SECONDARY DIAGNOSES: 1. Fibromyalgia. 2. Bipolar disorder. 3. Vitamin D deficiency. 4. Anxiety/depression. 5. Deconditioning. BRIEF HISTORY: Please see the H and P that was done by Dr. Hernandez. In brief, she is a 56-year- old, white female who has been declining due to ongoing pains, weakness, unable to walk. She had an extensive workup done at [facility] as well as here. She did not have any definitive neurological issues to explain her symptoms. She also is suffering from fibromyalgia, pain, and anxiety/depression. She was admitted to the hospital with abdominal pain, nausea, vomiting, right upper quadrant pain. HOSPITAL COURSE: She was found to have constipation. She was given laxatives with good bowel movements. She was given IV hydration. In the meantime, she complained nausea , right upper quadrant pain. As a result, a further workup, ultrasound of the gallbladder was negative for stones and HIDA scan was negative. All the findings were reassuring. Apparently, she needs some aggressive physical therapy. PPD test was negative. At the request of the family, she has been transferred to the assisted living facility. LABORATORY WORKUP: CBC: White cell count 4.7, hematocrit 36, platelets 280, 000. Sedimentation rate was 34. SMA 7: Sodium 145, potassium 3.9, chloride 110, BUN 9, creatinine 0.7, glucose 82, calcium 8.5, magnesium 1.8. Liver function tests were normal. CRP 4. Albumin is 6.7. Vitamin B12 743, folate is 8.9, is slightly low which was replaced. Thyroid function tests were normal. Urinalysis is clear. Urine toxic screen is negative. Plasma alcohol level is negative. Abdominal ultrasound is negative for gallstones. HIDA scan is negative. CT scan of the abdomen and pelvis, hysterectomy, small renal cyst, constipation with fecal impaction. Previous workup on 11/04/2015, thoracic spine MRI is negative. Lumbar spine MRI is negative. Cervical spine MRI, mild bulging disk at C5-C6. MRI of the brain is negative. DISCHARGE INSTRUCTIONS: 1. Aggressive physical therapy. 2. Vitamin B12 5000 mcg daily, Remeron 45 daily, vitamin D3 5000 units daily, Celexa 40 mg daily, Abilify 10 daily, gabapentin 300 t.i.d., Klonopin 1 mg at bedtime, Zanaflex 4 mg daily, estrogen 0.3 mg daily, Colace 100 p.o. b.i.d., MiraLAX 17 g daily, Dulcolax as needed, Tylenol p.r.n. for pain, and a PPD test was negative. 3. Will follow up in my office in 2 weeks. cc: Jamaal Dyer MD MTDD
[2016-11-10] MEDS: TYLENOL PO PRN (14:07)
== END 2016-11-10 14:57 ==
LOC: ED 08:44 → 3N 14:55
PROVIDERS: ADMIT Internal Medicine; ATTEND Internal Medicine

== ENCOUNTER 2016-11-13 16:48 | Inpatient (IN) ==
--- NOTE | 2016-11-13 17:55 | PROVIDER DOCUMENTATION ---
HPI-General Adult - General Chief Complaint: Weakness Stated Complaint: unable to walk Time Seen by Provider: 11/13/16 17:36 Source: patient, [facility] records Allergies/Adverse Reactions: Patient Allergies Allergy/AdvReac Type Severity Reaction Status Date / Time chocolate flavor Allergy VOMITING Verified 11/13/16 18:11 meperidine HCl * Allergy Unknown Verified 11/13/16 18:11 [From Demerol] venlafaxine HCl * Allergy Unknown Verified 11/13/16 18:11 [From Effexor] Home Medications: Home Medication List Medication Instructions Recorded Confirmed Last Taken Type Aripiprazole [Abilify] 10 mg PO DAILY 07/06/16 11/13/16 11/13/16 History Cholecalciferol (Vitamin D3) 5,000 unit PO DAILY 07/06/16 11/13/16 11/13/16 History [Vitamin D3] Citalopram [Celexa] 40 mg PO DAILY 07/06/16 11/13/16 11/13/16 History Clonazepam [Klonopin] 1 mg PO TID 07/06/16 11/14/16 11/12/16 History Cyanocobalamin (Vitamin B-12) 5,000 mcg PO DAILY 07/06/16 11/13/16 11/13/16 History [Vitamin B12] Gabapentin 300 mg PO TID 07/06/16 11/13/16 11/13/16 History Mirtazapine [Remeron] 45 mg PO QHS 07/06/16 11/13/16 11/12/16 History Tizanidine HCl [Zanaflex] 4 mg PO DAILY 07/06/16 11/13/16 11/13/16 History Estrogens, Conjugated [Premarin] 0.3 mg PO DAILY 10/31/16 11/13/16 11/13/16 History - History of Present Illness -Gen Adult Nature of Presenting Problems: Pt is a 56 y/o F that was transferred from her assisted living facility to the ER for evaluation of her mobility. Per the nursing department chairperson of the [facility], pt is unable to [id number] from wheelchair to bed. Pt was d/c from this hospital on Tuesday to the facility after treatment and evaluation of abdominal pain, nausea, and constipation. Pt has an extensive psych hx and the facility director is concerned that this lack of mobility may be psychogenic. On arrival, pt is in no distress. She states that she is able to transfer without difficulty and there are two employees at the facility that have difficulty making her transfer. Pt has no complaint of pain. She would like to speak to a psych screener. She denies any SI/HI or hallucinations. Review of Systems - Adult - REVIEW OF SYSTEMS - ADULT Constitutional: reports: no symptoms reported. denies: chills, fatique Eyes: reports: no symptoms reported. denies: blurred vision, double vision Ears, Nose, Mouth & Throat: reports: no symptoms reported. denies: ear pain, nose pain Cardiovascular: reports: no symptoms reported. denies: chest pain, irregular heart rate, orthopnea Respiratory: reports: no symptoms reported. denies: cough, shortness of breath Gastrointestinal: reports: no symptoms reported. denies: abdominal pain, nausea Genitourinary: reports: no symptoms reported. denies: dysuria, hematuria Musculoskeletal: reports: no symptoms reported. denies: joint pain, joint swelling Integumentary: reports: no symptoms reported. denies: hives, itching Neurological: reports: no symptoms reported. denies: numbness, paresthesia Psychiatric: reports: no symptoms reported. denies: anxiety, emotional problems , suicidal thoughts Endocrine: reports: no symptoms reported. denies: cold intolerance, heat intolerance Hematologic/Lymphatic: reports: no symptoms reported. denies: blood clots, low blood count Allergic/Immunologic: reports: no symptoms reported. denies: allergic reactions , food allergy All Other Systems: Reviewed and Negative Past History - Adult - PAST MEDICAL HISTORY-ADULT Review of Records: reports: Old Records Reviewed, Nursing Assessment Review, Medications Reviewed, Social history reviewed & non-contributory. Major Childhood Illnesses: reports: denies history Cardiovascular: reports: denies history Respiratory: reports: denies history Gastrointestinal: reports: other (constipation) Obstetrical/Gynecological: reports: denies history Genitourinary: reports: denies history Musculoskeletal: reports: fibromyalgia, other (spinal stenosis) Neurological: reports: denies history Psychiatric: reports: depression, psychiatric problems Endocrine/Immune: reports: anemia Other Conditions: reports: denies history - IMMUNIZATION STATUS Childhood Immunizations: See Nurse Assessment Flu Vaccine: See Nurse Assessment - FAMILY HISTORY Family History: reviewed, not pertinent - SOCIAL HISTORY Smoking: denies Substance Use: none/never Alcohol Use Frequency: never Living Situation: family Physical Exam-General - PHYSICAL EXAM-ADULT Initial Vital Signs Reviewed: Yes - CONSTITUTIONAL General Appearance: alert, no apparent distress - EYES Eyes: PERRL/EOMI, pink conjunctivae - HEAD, EARS, NOSE, MOUTH & THROAT HENMT: normocephalic/atraumatic, moist mucous membranes, normal ENT inspection - NECK Neck: normal inspection - RESPIRATORY Respiratory: chest non-tender, lungs clear, normal breath sounds - CARDIOVASCULAR Cardiovascular: normal peripheral pulses, regular rate, rhythm - GASTROINTESTINAL (ABDOMEN) Abdominal Exam: normal bowel sounds, non tender, soft - LYMPHATIC Lymphatic: no adenopathy - MUSCULOSKELETAL Back Exam: normal inspection, no CVA tenderness, no vertebral tenderness Extremity: normal range of motion, non-tender, normal inspection, other (Pt demonstrated [id number] to nursing) - SKIN Integumentary: normal color, normal turgor, warm/dry - NEUROLOGIC Neurologic: grossly normal, no motor/sensory deficits - PSYCHIATRIC Psych/Mental Status: normal mood/affect, normal thought content, normal thought process, oriented x 3 Progress - PLAN OF CARE/RESULTS Result Diagrams: 11/13/16 02:53 11/13/16 02:53 - CONSULTS/PCP/HOSPITALIST Notification #1 *Consult/PCP/Hospitalist*: Basia Kohler Time Discussed: 00:53 (Doesn't have to be inpatient, no beds available. ALready sees Dr. Franco outpatient, is being worked up for the conversion disorder. No SI/HI, no risk for hurting self or anyone else. ) Consult Disposition: F/U in office #2 Consult: Dr. Padilla, Hospitalist Time Discussed: 01:01 (Discussed with Dr. Padilla that pt unable to transition/ pivot at care facility or here in the ED. DW doesn't feel she needs inpatient treatment at this time, recommends outpatient follow up. BUt cannot go back to her facility if cannot perform these actions. Will come see pt. ) Consult Disposition: Will see in ED - CHANGE OF SHIFT REPORT (ED Provider) Report Given and Care Transferred to:: Torito Cullen PA-C Time of Transfer: 22:01 Items Pending: Physician Consult/Arrival (SOPHIE [facility]AVER) Departure - Departure Date of Disposition Decision: 11/14/16 Time of Disposition Decision: 01:00 DIAGNOSIS: Weakness, Inability to perform activities of daily living Disposition: ADMITTED INPATIENT 09 Certified Medical Emergency: Emergent Condition: Stable - Critical Care Note This patient required my direct & personal management of CC.: No Attestation - Physician/ AURY Attestation Advanced Practice Provider:: Gamal King
[2016-11-13 18:36] LABS: MANUAL DIFF NEEDED? NO
[2016-11-13 18:38] LABS: BASO% 0.2 % (0.0-0.8); EOS# 0.15 X1000 (0.0-0.7); EOS% 1.8 % (0.0-10.0); HEMOGLOBIN 12.5 g/dL (12.0-16.0); IMM GRAN# 0.02 X1000 (0.0-0.04); IMM GRAN% 0.2 % (0.0-0.5); LYMPH# 2.46 X1000 (1.2-3.4); LYMPH% 29.1 % (20.5-51.1); MCH 29.6 PG (27-31); MCHC 32.9 g/dL (33-37); MCV 89.8 FL (81-99); MONO# 0.88 X1000 (0.11-0.59); MONO% 10.4 % (1.7-9.3); MPV 9.3 FL (7.4-10.4); NEUT% 58.3 % (42.2-75.2); PLT 385 X1000 (130-400); RBC 4.23 XMIL (4.2-5.4)
[2016-11-13 19:12] LABS: AGAP 14; ALBUMIN 3.9 g/dL (3.5-5.0); ALKALINE PHOSPHATASE 90 U/L (32-104); BUN 11 mg/dL (8-22); CALCIUM 9.2 mg/dL (8.8-10.2); CHLORIDE 101 mmol/L (98-107); COSMO 277; GOT 15 U/L (10-30); GPT 14 U/L (10-36); POTASSIUM 4.2 mmol/L (3.5-5.1); SODIUM 139 mmol/L (136-145); TCO2 24 mmol/L (25-35); TOTAL PROTEIN 7.4 g/dL (6.3-8.3)
[2016-11-13 19:29] LABS: FREE T4 1.23 ng/dL (0.93-1.70)
[2016-11-13 20:29] LABS: URINE SOURCE CATH
[2016-11-13 20:33] LABS: BILIRUBIN URINE NEGATIVE (NEGATIVE); BLOOD URINE NEGATIVE (NEGATIVE); COLOR YELLOW; GLUCOSE URINE NEGATIVE (NEGATIVE); LEUKOCYTES URINE SMALL (NEGATIVE); NITRITE URINE NEGATIVE (NEGATIVE); PROTEIN URINE NEGATIVE (NEGATIVE); SP GRAVITY URINE 1.009; TURBIDITY URINE CLEAR (CLEAR); UROBILINOGEN URINE NORMAL (NORMAL)
[2016-11-13 20:34] LABS: URINE MICRO REVIEW NEEDED? YES
[2016-11-13 20:44] LABS: UR EPITHELIAL CELLS <10 /HPF (<10); URINE BACTERIA 2+ /HPF; URINE CULTURE NEEDED? YES; URINE RBC <10 /HPF (<10)
[2016-11-13 21:24] LABS: UR AMPHETAMINES QUAL NONE DETECTED (NONE DETECT); UR BARBITUATES QUAL NONE DETECTED (NONE DETECT); UR BENZODIAZEPIN QUAL PRESUMPTIVE POSITIVE (NONE DETECT); UR CANNABINOIDS QUAL NONE DETECTED (NONE DETECT); UR COCAINE QUAL NONE DETECTED (NONE DETECT); UR METHADONE QUAL NONE DETECTED (NONE DETECT); UR OPIATES QUAL NONE DETECTED (NONE DETECT); UR OXYCODONE QUAL NONE DETECTED (NONE DETECT); UR PCP QUAL NONE DETECTED (NONE DETECT)
--- NOTE | 2016-11-14 03:21 | HISTORY AND PHYSICAL ---
PRIMARY CARE PHYSICIAN: Dr. Dyer. CHIEF COMPLAINT: Generalized weakness and unable to walk. HISTORY OF PRESENTING ILLNESS: A 56-year-old female with a history of fibromyalgia who apparently had been admitted about a week ago and just discharged recently, last Tuesday. Had presented to the emergency department again complaining of that. She was not able to walk and feeling weak. She states that she was sent to her assisted living facility and they had stated that she could not stay there due lack of her mobility. During her previous admission, social service was trying to work on getting patient inpatient rehab. However, due to lack of insurance deductible, she was not able to afford it. Subsequently, she was sent back to her assisted living facility. At the time of my examination, she had denied any headache, fever, chills, chest pain, shortness of breath, hemoptysis, melena, or weight changes but complained of just worsening weakness. Due to these presenting symptoms, it was thought that we would keep her in for observation for further evaluation, and management. PAST MEDICAL HISTORY: Fibromyalgia. PAST SURGICAL HISTORY: Thyroid surgery, hysterectomy, tonsillectomy, and adenoidectomy. ALLERGIES: Effexor, meperidine, chocolate flavor, Ultram. CURRENT MEDICATIONS: Listed in the MAR. SOCIAL HISTORY: She denies any history of smoking, alcohol, or illicit drug use. FAMILY HISTORY: No history of coronary disease. REVIEW OF SYSTEMS: Twelve point review of systems is as listed per the HPI. Other systems negative. PHYSICAL EXAMINATION: GENERAL: Cooperative, friendly female. She is resting comfortably. VITAL SIGNS: Temperature 98.3 degrees, pulse 97, respirations 20, blood pressure 160/90. HEENT: Atraumatic, normocephalic. Extraocular movements intact. PERRLA. NECK: Supple. CHEST: Clear to auscultation. CARDIOVASCULAR: Regular rate and rhythm. ABDOMEN: Soft. Positive bowel sounds. EXTREMITIES: No edema. NEUROLOGIC: She is awake, alert, oriented x3. : No bladder distention. SKIN: Warm. LABORATORIES AND STUDIES: WBCs 8.46, hemoglobin 12.5, hematocrit 38, platelets are 385,000. Sodium 139, potassium 4.2, chloride 101, CO2 is 24, BUN is 11, creatinine 0.7, glucose 104. ASSESSMENT: A 56-year-old female with a history of fibromyalgia who presented to the emergency department due to patient's inability to ambulate. The patient was residing at [facility] where she was sent to the emergency room for evaluation of her weakness due to the fact that she could not ambulate. The patient apparently had workup by her primary care physician, Dr. Dyer. Apparently had an MRI and other workup which was unremarkable. It is really unclear why she is not able to ambulate. However, due to her persistent weakness, it was felt that we will place her for observation for further management. 1. Generalized weakness. 2. Fibromyalgia. PLAN: 1. We will admit patient to observation. 2. We will consult physical therapy. 3. We will consult social service to assist with placement. 4. We will put the patient on DVT prophylaxis with SCDs. 5. We will continue to follow and reassess. cc: Cruz Padilla MD MTDD
[2016-11-14] MEDS: PREMARIN PO SCH (09:31)
[2016-11-14] MEDS: NEURONTIN PO SCH ×3 (09:31→18:42)
[2016-11-14] MEDS: ZANAFLEX PO SCH (09:31)
[2016-11-14] MEDS: CELEXA PO SCH (09:32)
[2016-11-14] MEDS: ABILIFY PO SCH (09:32)
[2016-11-14] MEDS: VITAMIN D PO SCH (09:32)
--- NOTE | 2016-11-14 17:16 | PROGRESS NOTE ---
DATE: 11/14/2016 Ms. Tamez has fibromyalgia. She had fecal impaction. Fibromyalgia is still not better. She is on gabapentin. We will put her on [place]ats 5 t.i.d. p.r.n. -1 cc: MD Jamaal Bhatia MD
[2016-11-14] MEDS: REMERON PO SCH (20:27)
[2016-11-14] MEDS: NORCO-5 PO PRN ×2 (20:27→23:42)
[2016-11-14] MEDS: KLONOPIN PO SCH (20:27)
[2016-11-15] MEDS: NORCO-5 PO PRN ×2 (06:04→22:18)
[2016-11-15] MEDS: CELEXA PO SCH (08:31)
[2016-11-15] MEDS: VITAMIN D PO SCH (08:31)
[2016-11-15] MEDS: ZANAFLEX PO SCH (08:31)
[2016-11-15] MEDS: NEURONTIN PO SCH ×3 (08:31→16:58)
[2016-11-15] MEDS: ABILIFY PO SCH (08:31)
[2016-11-15] MEDS: PREMARIN PO SCH (08:31)
--- NOTE | 2016-11-15 20:33 | PROGRESS NOTE ---
DATE: 11/15/2016 SUBJECTIVE: According to the reports, patient went to [facility]. Unable to do physical therapy. She is almost requiring full-time assistance. Previous workup was basically unremarkable. REVIEW OF SYSTEMS: None reported. PHYSICAL EXAMINATION: Vital signs: Afebrile. Vitals are stable. HEENT: Within normal limits. Neck: Supple. Chest: Clear. Heart: Sounds are regular. Belly: Soft, nontender. Good bowel sounds. No masses palpable. LABORATORY: CBC was normal. SMA 7 is normal. Urinalysis is clear. ASSESSMENT AND PLAN: 1. Chronic fibromyalgia. Bipolar disorder. Symptoms are out of proportion to the objective findings. 2. Constipation. Continue on laxatives. 3. Patient is not a candidate for assisted care facility. She will be good candidate for long- term care. Initiate secondary social studies teacher consult. I did discuss the patient has to pay detectable 1000 dollars and she has to make the arrangements for payment plan and continue present medical therapy. Added DVT prophylaxis with Lovenox. Inpatient physical therapy and will follow up. cc: Jamaal Dyer MD
[2016-11-15] MEDS: REMERON PO SCH (22:18)
[2016-11-15] MEDS: KLONOPIN PO SCH (22:20)
[2016-11-16] MEDS: NORCO-5 PO PRN ×2 (05:03→21:27)
[2016-11-16] MEDS: NEURONTIN PO SCH ×3 (08:52→16:58)
[2016-11-16] MEDS: ZANAFLEX PO SCH (08:52)
[2016-11-16] MEDS: CELEXA PO SCH (08:52)
[2016-11-16] MEDS: ABILIFY PO SCH (08:52)
[2016-11-16] MEDS: VITAMIN D PO SCH (08:52)
[2016-11-16] MEDS: PREMARIN PO SCH (08:52)
[2016-11-16] MEDS: VITAMIN B-12 PO SCH (08:52)
[2016-11-16] MEDS: LOVENOX SUBQ SCH (08:52)
--- NOTE | 2016-11-16 18:04 | PROGRESS NOTE ---
DATE: 11/16/2016 SUBJECTIVE: The patient is bedridden, unable to walk and explain all the studies were normal. EXAMINATION: Vitals: Stable. HEENT: Within normal limits. Neck: Supple. Chest: Clear. Heart: Sounds are regular. Abdomen: Belly is soft, nontender. Good bowel sounds. Extremities: No peripheral edema, cyanosis, clubbing. ASSESSMENT: 1. Chronic fibromyalgia. 2. Bipolar disorder. 3. Deconditioning. PLAN: Needs aggressive physical therapy. Medically stable. DVT, GI prophylaxis as directed and discussed with social security benefits interviewer. Waiting for placement. Continue present medical therapy. LEVEL OF DOCUMENTATION: 15 minutes. cc: Jamaal Dyer MD
[2016-11-16] MEDS: KLONOPIN PO SCH (20:10)
[2016-11-16] MEDS: REMERON PO SCH (21:26)
[2016-11-17] MEDS: NORCO-5 PO PRN ×2 (05:09→22:29)
[2016-11-17] MEDS: PREMARIN PO SCH (09:33)
[2016-11-17] MEDS: VITAMIN D PO SCH (09:33)
[2016-11-17] MEDS: ZANAFLEX PO SCH (09:33)
[2016-11-17] MEDS: VITAMIN B-12 PO SCH (09:33)
[2016-11-17] MEDS: CELEXA PO SCH (09:33)
[2016-11-17] MEDS: NEURONTIN PO SCH ×3 (09:33→17:55)
[2016-11-17] MEDS: ABILIFY PO SCH (09:33)
[2016-11-17] MEDS: LOVENOX SUBQ SCH (09:34)
--- NOTE | 2016-11-17 20:06 | PROGRESS NOTE ---
DATE: 11/17/2016 SUBJECTIVE: Patient is stable, eating well. She is not able to walk for the last year and a half. Despite negative workup, she is bedridden. Patient encouraged to walk with some assistance. Otherwise, she will get some complications. PHYSICAL EXAMINATION: Vital Signs: Stable. HEENT: Within normal limits. Neck: Supple. Chest: Clear. Heart: Sounds are regular. Exam is pretty much benign. ASSESSMENT AND PLAN: Chronic fibromyalgia pain. Bipolar disorder, stable. Deconditioning. Continue inpatient physical therapy and continue present medical therapy. Waiting for placement. LEVEL OF DOCUMENTATION: 15 minutes. cc: Jamaal Dyer MD
[2016-11-17] MEDS: REMERON PO SCH (22:30)
[2016-11-17] MEDS: KLONOPIN PO SCH (22:30)
[2016-11-18] MEDS: NORCO-5 PO PRN ×3 (05:33→22:34)
[2016-11-18] MEDS: ABILIFY PO SCH (09:56)
[2016-11-18] MEDS: PREMARIN PO SCH (09:57)
[2016-11-18] MEDS: CELEXA PO SCH (09:57)
[2016-11-18] MEDS: NEURONTIN PO SCH ×3 (09:57→16:46)
[2016-11-18] MEDS: VITAMIN B-12 PO SCH (09:57)
[2016-11-18] MEDS: VITAMIN D PO SCH (09:57)
[2016-11-18] MEDS: ZANAFLEX PO SCH (09:57)
[2016-11-18] MEDS: LOVENOX SUBQ SCH (10:00)
--- NOTE | 2016-11-18 19:41 | PROGRESS NOTE ---
DATE: 11/18/2016 SUBJECTIVE: Patient is doing very well. Attempted to walk out of the bed, and otherwise no complaints. OBJECTIVE: Vital signs: Stable. HEENT: Within normal limits. Neck: Supple. No lymphadenopathy. No goiter. Chest: Clear. Heart: Sounds are regular. Abdomen: Belly is soft, nontender. Good bowel sounds. No masses palpable. Neurologic: No obvious deficits. INVESTIGATIONS: Stable. ASSESSMENT AND PLAN: Chronic fibromyalgia. Deconditioning. Bipolar. Continue present medical treatment. Medically stable. Waiting for placement. Discussed with social studies department chair. Continue present treatment. cc: Jamaal Dyer MD
[2016-11-18] MEDS: REMERON PO SCH (22:33)
[2016-11-18] MEDS: KLONOPIN PO SCH (22:34)
[2016-11-19] MEDS: NORCO-5 PO PRN ×2 (04:55→23:08)
[2016-11-19] MEDS: ZANAFLEX PO SCH (09:51)
[2016-11-19] MEDS: ABILIFY PO SCH (09:51)
[2016-11-19] MEDS: VITAMIN B-12 PO SCH (09:51)
[2016-11-19] MEDS: LOVENOX SUBQ SCH (09:51)
[2016-11-19] MEDS: VITAMIN D PO SCH (09:51)
[2016-11-19] MEDS: CELEXA PO SCH (09:51)
[2016-11-19] MEDS: PREMARIN PO SCH (09:51)
[2016-11-19] MEDS: NEURONTIN PO SCH ×3 (09:51→17:14)
--- NOTE | 2016-11-19 17:45 | PROGRESS NOTE ---
DATE: 11/19/2016 SUBJECTIVE: Patient still remains bedridden, needs assistance. No complaints. REVIEW OF SYSTEMS: None reported. Afebrile. Vitals are stable. Input and output are positives.HEENT: Within normal limits. Chest: Clear. Heart: Sounds are regular. Abdomen: Belly is soft, nontender. Good bowel sounds. Not mobile. Urine cultures were negative. ASSESSMENT AND PLAN: Fibromyalgia, bipolar disorder, deconditioning, not able to ambulate. Previous workup was negative. Symptoms are out of proportion to the objective findings. Social problem. Discussed with the neonatal social worker. Waiting for placement at [facility]. She is going to contact the family to make financial arrangements and until that time she is going to stay here. Continue present medical therapy. Level of documentation 15 minutes. cc: Jamaal Dyer MD
[2016-11-19] MEDS: REMERON PO SCH (21:46)
[2016-11-19] MEDS: KLONOPIN PO SCH (21:46)
[2016-11-20] MEDS: NORCO-5 PO PRN ×2 (10:00→20:02)
[2016-11-20] MEDS: VITAMIN D PO SCH (10:00)
[2016-11-20] MEDS: NEURONTIN PO SCH ×4 (10:00→20:02)
[2016-11-20] MEDS: LOVENOX SUBQ SCH (10:01)
[2016-11-20] MEDS: ZANAFLEX PO SCH (10:01)
[2016-11-20] MEDS: ABILIFY PO SCH (10:01)
[2016-11-20] MEDS: CELEXA PO SCH (10:01)
[2016-11-20] MEDS: PREMARIN PO SCH (10:01)
[2016-11-20] MEDS: VITAMIN B-12 PO SCH (10:01)
--- NOTE | 2016-11-20 10:47 | PROGRESS NOTE ---
DATE: 11/20/2016 SUBJECTIVE: The patient remained bedridden. Symptoms are out of proportion to the findings. Discussed with the social work lecturer yesterday. PHYSICAL EXAMINATION: Vital signs are stable. HEENT: Within normal limits. Neck is supple. Chest is clear. Heart sounds are regular. Belly is soft, nontender. Good bowel sounds and no obvious deficits noted. ASSESSMENT AND PLAN: Deconditioning, fibromyalgia, not able to walk. Looking for aggressive physical therapy. Waiting for placement. Family is arranging to go to [facility]. Level of Documentation: 15 minutes. Another dictation. cc: Jamaal Dyer MD
[2016-11-20] MEDS: KLONOPIN PO SCH (20:02)
[2016-11-20] MEDS: REMERON PO SCH (20:02)
[2016-11-21] MEDS: NORCO-5 PO PRN ×3 (04:12→22:43)
[2016-11-21] MEDS: PREMARIN PO SCH (08:41)
[2016-11-21] MEDS: ABILIFY PO SCH (08:41)
[2016-11-21] MEDS: NEURONTIN PO SCH ×3 (08:41→22:42)
[2016-11-21] MEDS: VITAMIN D PO SCH (08:41)
[2016-11-21] MEDS: LOVENOX SUBQ SCH (08:41)
[2016-11-21] MEDS: VITAMIN B-12 PO SCH (08:41)
[2016-11-21] MEDS: CELEXA PO SCH (08:41)
[2016-11-21] MEDS: ZANAFLEX PO SCH (08:41)
--- NOTE | 2016-11-21 10:03 | PROGRESS NOTE ---
DATE: 11/21/[address] Dyer. SUBJECTIVE: The patient is stable. Remains in bed. Complains of pain all over. OBJECTIVE: Vital Signs: Afebrile. Vital signs are stable. O2 saturations on room air are 94- 97%. She is eating 50-100% of her meals. Bowel movement, 1 in the past 24 hours. CV: RRR. Lungs: CTA. Abdomen: Soft. Extremities: No edema. Neurologic: Nonfocal. ASSESSMENT: Fibromyalgia. PLAN: Continue physical therapy and medications as Dr. Dyer is doing with Remeron, Zanaflex, Neurontin, Lovenox for prophylaxis of DVT. She is also on Celexa and Klonopin and Abilify. Plans for [facility] are notable. We will observe. cc: MD Jamaal Saunders MD
[2016-11-21] MEDS: REMERON PO SCH (22:42)
[2016-11-21] MEDS: KLONOPIN PO SCH (22:42)
[2016-11-22] MEDS: ZANAFLEX PO SCH (10:56)
[2016-11-22] MEDS: ABILIFY PO SCH (10:56)
[2016-11-22] MEDS: NEURONTIN PO SCH ×3 (10:56→17:00)
[2016-11-22] MEDS: PREMARIN PO SCH (10:56)
[2016-11-22] MEDS: VITAMIN B-12 PO SCH (10:56)
[2016-11-22] MEDS: CELEXA PO SCH (10:56)
[2016-11-22] MEDS: VITAMIN D PO SCH (10:56)
[2016-11-22] MEDS: LOVENOX SUBQ SCH (10:57)
[2016-11-22] MEDS: NORCO-5 PO PRN ×2 (11:05→22:18)
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
[2016-11-22] MEDS: KLONOPIN PO SCH (22:18)
[2016-11-22] MEDS: REMERON PO SCH (22:18)
[2016-11-23] MEDS: NORCO-5 PO PRN ×3 (05:17→19:54)
[2016-11-23] MEDS: CELEXA PO SCH (08:00)
[2016-11-23] MEDS: ZANAFLEX PO SCH (08:00)
[2016-11-23] MEDS: PREMARIN PO SCH (08:00)
[2016-11-23] MEDS: VITAMIN D PO SCH (08:01)
[2016-11-23] MEDS: NEURONTIN PO SCH ×3 (08:01→16:20)
[2016-11-23] MEDS: ABILIFY PO SCH (08:01)
[2016-11-23] MEDS: LOVENOX SUBQ SCH (08:01)
[2016-11-23] MEDS: VITAMIN B-12 PO SCH (08:01)
--- NOTE | 2016-11-23 18:21 | PROGRESS NOTE ---
DATE: 11/23/2016 SUBJECTIVE: Patient is doing very well. No complaints, eating well. Not able to walk. OBJECTIVE: On exam vitals are stable. Physical exam no change, nonfocal exam. ASSESSMENT AND PLAN: Waiting for placement, paperwork not been done. Discussed with the patient as well as social and political studies professor will be discharged as soon as bed is available. LEVEL OF DOCUMENTATION: Is 50 minutes. cc: Jamaal Dyer MD
[2016-11-23] MEDS: KLONOPIN PO SCH (19:55)
[2016-11-23] MEDS: REMERON PO SCH (22:00)
[2016-11-24] MEDS: KLONOPIN PO SCH ×2 (03:27→22:00)
[2016-11-24] MEDS: NORCO-5 PO PRN ×3 (04:11→22:24)
[2016-11-24] MEDS: ZANAFLEX PO SCH (08:14)
[2016-11-24] MEDS: PREMARIN PO SCH (08:14)
[2016-11-24] MEDS: VITAMIN B-12 PO SCH (08:14)
[2016-11-24] MEDS: CELEXA PO SCH (08:14)
[2016-11-24] MEDS: VITAMIN D PO SCH (08:15)
[2016-11-24] MEDS: NEURONTIN PO SCH ×3 (08:15→17:22)
[2016-11-24] MEDS: LOVENOX SUBQ SCH (08:15)
[2016-11-24] MEDS: ABILIFY PO SCH (08:15)
--- NOTE | 2016-11-24 08:56 | PROGRESS NOTE ---
DATE: 11/24/2016 SUBJECTIVE: The patient is doing very well. Continues to have weakness in the legs. Previous workup was negative. Stent is normal. Unable to walk. Previous workup for us at [facility] unable to explain the weakness. Continue on B 12 replacement therapy. Vitals are stable. Eating very well. Chest is clear. Heart sounds are regular. Motor power 5 x 5 in all extremities. ASSESSMENT AND PLAN: 1. Chronic weakness ,etiology to be determined. 2. B 12 deficiency on replacement therapy. 3. Discussed with the patient doing the paperwork through the State; hopefully it will be resolved by tomorrow and get a bed in [facility]. LEVEL OF DOCUMENTATION: 15 minutes. cc: Jamaal Dyer MD
[2016-11-24] MEDS: REMERON PO SCH (22:25)
[2016-11-25] MEDS: NORCO-5 PO PRN ×3 (06:32→21:12)
--- NOTE | 2016-11-25 09:13 | PROGRESS NOTE ---
DATE: 11/25/2016 SUBJECTIVE: The patient still remains bedridden. Waiting for paperwork to be placed. REVIEW OF SYSTEMS: Same. VITAL SIGNS: Stable. PHYSICAL EXAMINATION: No change. ASSESSMENT AND PLAN: A 56-year-old white female, admitted to the hospital for placement. Unable to walk for the last 2 years. The patient was seen in [facility] and [facility] I did review the reports and nothing was panned out. At one point, considering CMT disease. Anyhow, she needs long-term placement and aggressive physical therapy. As soon as she gets a bed in the shelter, she will be discharged. LEVEL OF DOCUMENTATION: 15 minutes. cc: Jamaal Dyer MD MTDD
[2016-11-25] MEDS: CELEXA PO SCH (10:23)
[2016-11-25] MEDS: VITAMIN D PO SCH (10:23)
[2016-11-25] MEDS: ABILIFY PO SCH (10:23)
[2016-11-25] MEDS: PREMARIN PO SCH (10:24)
[2016-11-25] MEDS: NEURONTIN PO SCH ×3 (10:24→17:07)
[2016-11-25] MEDS: LOVENOX SUBQ SCH (10:24)
[2016-11-25] MEDS: VITAMIN B-12 PO SCH (10:24)
[2016-11-25] MEDS: ZANAFLEX PO SCH (10:24)
[2016-11-25] MEDS: REMERON PO SCH (21:13)
[2016-11-25] MEDS: KLONOPIN PO SCH (21:13)
[2016-11-26] MEDS: NORCO-5 PO PRN ×2 (06:20→14:15)
[2016-11-26 08:07] VITALS: BP 110/66
[2016-11-26] MEDS: LOVENOX SUBQ SCH (09:37)
[2016-11-26] MEDS: ZANAFLEX PO SCH (09:37)
[2016-11-26] MEDS: VITAMIN D PO SCH (09:37)
[2016-11-26] MEDS: CELEXA PO SCH (09:37)
[2016-11-26] MEDS: VITAMIN B-12 PO SCH (09:37)
[2016-11-26] MEDS: PREMARIN PO SCH (09:37)
[2016-11-26] MEDS: ABILIFY PO SCH (09:37)
[2016-11-26] MEDS: NEURONTIN PO SCH ×2 (09:37→14:17)
--- NOTE | 2016-11-26 10:01 | DISCHARGE SUMMARY ---
ADMISSION DATE: 11/18/2016 DISCHARGE DATE: 11/26/2016 DISCHARGING DIAGNOSES: 1. Generalized weakness due to deconditioning. 2. Fibromyalgia. 3. Bipolar disorder. 4. Vitamin D deficiency. 5. Anxiety/depression. 6. History of constipation. 7. B12 deficiency. BRIEF HISTORY/HOSPITAL COURSE: Please see the H and P that was done by Dr. Arroyo, hospitalist. In brief, she is a 56-year-old white female who has been suffering from weakness in both legs and movement disorder, seen by 2 different neurologists for the last 2 years. She had worked up in [place] as well as at [facility] neurologists. She had a total workup done, which includes MRI of the brain, MRI of the C-spine, thoracic spine, and L-spine, EMG studies, and no diagnosis was made. She has some weakness in both legs. At one point, the diagnosis was questionable for CMT disease. The patient lives in apartment and unable to be taken care of by the family. She was brought in last admission for constipation. During that admission, the patient was given laxatives. PPD test was negative. B12 shots were given. The patient was transferred to an assisted living facility, and she was not a candidate for aggressive physical therapy. The brought her back here for placement in the [facility]. It takes almost 2 weeks to get the paperwork done by the [facility]. Finally, the patient is going to [facility]. As per the examination, she has weakness in both legs, and the left side is worse than the right side. She is been barely able to walk to the chair. Her motor power is normal, and nobody is explaining the symptomatology for the weakness, and finally she is going for placement. LABORATORY DATA: Labs are as follows: CBC with white cell count 8.4, hematocrit 38, platelets 385,000. SMA-7 is normal. LFTs were normal. B12, thyroid function tests, and urinalysis are normal. Urine toxicology positive for benzodiazepines. DISCHARGE INSTRUCTIONS/MEDICATIONS: The discharge instructions are as follows: 1. Vitamin B12 at 5000 mcg daily. 2. Remeron 45 at bedtime. 3. Vitamin D3 at 5000 units daily. 4. Celexa 40 daily. 5. Abilify 10 daily. 6. Gabapentin 300 t.i.d. 7. Klonopin 1 mg at bedtime. 8. Zanaflex 4 mg daily. 9. Premarin 0.3 mg daily. 10. MiraLAX 17 grams daily. 11. Colace 100 p.o. b.i.d. 12. Continue to monitor her progress in the [facility]. cc: Jamaal Dyer MD
== END 2016-11-26 14:38 ==
LOC: ED 16:48 → SUATTDRO 11-14 02:05 → INTOOBSV 11-14 02:05 → 3N 11-14 02:05
PROVIDERS: ADMIT Internal Medicine; ATTEND Internal Medicine